=== PATIENT | male | born 1960 | race African-American/Black ===

== ENCOUNTER 2022-09-06 11:32 | Emergency (ER) | payer BC, SELFPAY ==
[2022-09-06 11:34] VITALS: BP 162/90; PULSE 98; RESP 14; TEMP 36.2; O2SAT 98
[2022-09-06 12:01] LABS: Appearance Urine Slightly Cloudy (Clear); Basophils Percent Auto 0.2 % (0.2-1.2); Bilirubin Urine 1+ (Negative); Blood Urine Trace-lysed (Negative); Color Urine Yellow (Yellow); Eosinophils Absolute Auto 0.1 K/mm3 (0-0.3); Eosinophils Percent Auto 1.2 % (0-4.4); Glucose Urine UA Negative (Negative); Hematocrit 45.7 % (42.0-52.0); Hemoglobin 15.5 g/dL (14.0-18.0); Immature Granulocyte Absolute 0.02 K/mm3 (0.00-0.031); Immature Granulocyte Percent A 0.3 % (0-0.5); Ketones Urine Negative (Negative); Leukocyte Esterase Ur Negative LEU/UL (Negative); Lymphocytes Absolute Auto 1.18 K/mm3 (0.9-3.2); Lymphocytes Percent Auto 20.6 % (18.3-44.2); Mean Corpuscular HGB Conc 33.9 g/dl (32-36); Mean Corpuscular Hemoglobin 32.3 pg (26-34); Mean Corpuscular Volume 95.2 fl (80-100); Mean Platelet Volume 11.3 fl (7.4-10.4); Monocytes Absolute Auto 0.7 K/mm3 (0.1-0.6); Monocytes Percent Auto 11.4 % (2.6-8.5); Neutrophils Absolute Auto 3.8 K/mm3 (1.3-6.7); Neutrophils Percent Auto 66.3 % (45.5-73.1); Nitrate Urine Negative (Negative); Platelet Count Result 183 k/mm3 (150-375); Protein Urine 2+ mg/dL (Negative); Red Cell Distribution Width 13.6 % (11.5-14.5); Specific Grav Ur >= 1.030 (1.001-1.035); Urobilinogen Urine 0.2 mg/dL (<2.0); White Blood Count 5.7 K/mm3 (4.5-10.0); pH Urine 5.5 (5.0-9.0)
[2022-09-06 12:10] LABS: Mucus Urine Heavy /lpf; Squamous Epithelial Cell Urine Rare /hpf (Few); WBC Urine 0-3 /hpf
[2022-09-06 12:11] LABS: Add Urine Microscopic? YES
[2022-09-06 12:16] LABS: Alanine Aminotransferase 18 U/L (6-50); Albumin Level 4.5 g/dL (3.5-5.1); Alkaline Phosphatase 73 U/L (38-126); Anion Gap 8 mmol/L (8-16); Aspartate Amino Transferase 26 U/L (17-59); Bilirubin,Total 0.8 mg/dL (0.2-1.3); Blood Urea Nitrogen 11 mg/dL (9-20); Carbon Dioxide 25 mmol/L (22-30); Chloride 106 mmol/L (98-107); Estimated CRCL calculation 108 ml/min; Estimated Glomerular Filt Rate > 60; Glucose 109 mg/dL (65-110); Lipase 54 U/L (23-300); Potassium 3.7 mmol/L (3.4-5.0); Sodium 139 mmol/L (137-145)
--- NOTE | 2022-09-06 13:20 | ED.ABDPAIN ---
HPI - Abdominal Pain General Chief Complaint: Abdominal Pain Stated Complaint: diarrhea with abdominal and groin pain x 3 days Time Seen by Provider: 09/06/22 12:17 History of Present Illness HPI narrative: This is a 62-year-old male who denies past medical history, presenting emergency department complaining of loose stools for the past 3 days and groin pain. Patient states he has had frequent loose stools without blood. States he believes he had a fever yesterday that has since resolved. He does not know of any sick contacts and denies poorly cooked or foul tasting foods. He noted in the past day, bilateral groin pressure aggravated by standing or bending at the waist. This occasionally radiates to the bilateral thighs but denies pain elsewhere. Related Data Allergies Allergy/AdvReac Type Severity Reaction Status Date / Time No Known Allergies Allergy Unverified 09/06/22 11:32 Review of Systems Review of Systems: CONSTITUTIONAL: Subjective fever?resolved denies chills, or sweats. EYES: Denies visual changes, redness, or discharge. ENT: Denies rhinorrhea, congestion, sore throat, or otalgia. CARDIOVASCULAR: Denies chest pain, palpitations, or edema. RESPIRATORY: Denies cough or dyspnea. GASTROINTESTINAL: Bilateral intermittent groin pain, loose stools denies nausea or vomiting, GENITOURINARY: Denies dysuria or hematuria. SKIN: Denies rash or itching. MUSCULOSKELETAL: Denies back pain, joint pain, or myalgia. NEUROLOGIC: Denies headache, numbness, dizziness, or weakness. PSYCHIATRIC: Denies anxiety or depression. [facility] Social History Social History (Updated 09/06/22 @ 13:23 by Jacky Dotson MD) Smoking status: Never smoker Alcohol intake: current Substance use: never Exam Narrative: GENERAL: Well-developed, well-nourished, and in no acute distress. HEAD: Normocephalic, atraumatic. EYES: PERRLA and EOMI. ENT: Nares clear, no rhinorrhea or epistaxis. Mucous membranes moist. Oropharynx without tonsillar hypertrophy exudate or other lesions. NECK: Supple. No adenopathy or masses. No carotid bruits or JVD CHEST: Clear to auscultation. No respiratory distress. No wheezes rales or rhonchi HEART: Regular rate and rhythm. No murmur heard. Normal peripheral pulses. ABDOMEN: Soft, nontender, nondistended, normal active bowel sounds. No inguinal mass or swelling including on Valsalva EXTREMITIES: Normal range of motion. No edema. SKIN: Warm, dry, no rash. NEURO: No focal deficits. Alert and oriented x3. PSYCH: Normal mood and affect. Course Course Emergency Course: 14:32 - CBC unremarkable with a white blood cell count of 5.7. Chemistries are not concerning for kidney injury with a creatinine of 0.7. Electrolytes within normal limits. UA demonstrates microscopic hematuria. I suspect an infectious enteritis. I do not suspect need for admission. I discussed these findings with the patient including recommendations to follow-up with his primary care doctor for further evaluation. The patient voiced understanding and is comfortable with the plan. All questions answered to his satisfaction. Vital Signs Vital signs: Vital Signs Temperature 97.2 F L 09/06/22 11:34 Pulse Rate 98 09/06/22 11:34 Respiratory Rate 14 09/06/22 11:34 Blood Pressure 162/90 H 09/06/22 11:34 Pulse Oximetry 98 09/06/22 11:34 Oxygen Delivery Room Air 09/06/22 11:34 Temperature 97.2 F L 09/06/22 11:34 Pulse Rate 98 09/06/22 11:34 Respiratory Rate 14 09/06/22 11:34 Blood Pressure 162/90 H 09/06/22 11:34 Pulse Oximetry 98 09/06/22 11:34 Oxygen Delivery Room Air 09/06/22 11:34 MDM - Abdominal Pain MDM Narrative Medical decision making narrative: Plan: Labs, IV fluids if indicated, reassess Differential Diagnosis Differential diagnosis: Likely gastroenteritis and other (Hernia, metabolic abnormality, kidney injury, UTI, other) Lab Data 09/06/22 11:52 09/06/22 11:52
[2022-09-06 14:44] VITALS: PULSE 91; RESP 16; O2SAT 97
== END 2022-09-06 14:44 | disposition home or self-care (01) ==
PROVIDERS: Emergency Medicine; Emergency Provider Preventive Medicine Aerospace Medicine; PCP Family Medicine Adolescent Medicine
DX: K52.9 Noninfective gastroenteritis and colitis, unspecified (principal); R31.29 Other microscopic hematuria
CPT/HCPCS: 36415; 80053; 81001; 83690; 85025; 99283

== ENCOUNTER 2024-01-06 02:48 | Day surgery (SDC) | payer BC, SELFPAY ==
[2023-12-22 12:07] VITALS: BMI 41.6
[2024-01-06 07:02] VITALS: BP 137/80; PULSE 84; RESP 18; TEMP 36.3; O2SAT 98
[2024-01-06] MEDS: LACTATED RINGERS 1,000 ML 150 ML IV CONT (07:09)
--- NOTE | 2024-01-06 07:38 | P.PNAN_ITS ---
Anes - Initial Pre Proc Eval Procedure: Operation Date: 01/06/24 08:30 Proposed Procedures p Screening Colonoscopy - Jewel Appiah DO Date/Time: 01/06/24 07:38 Surgeon: Jewel Appiah DO Pre Op Diagnosis: Screening for malignant neoplasm of colon Patient Data Age: 63 Gender: M Height: 1.65 m Weight: 113 kg Last Vital Signs Temp 97.4 F L 01/06/24 07:02 Pulse 84 01/06/24 07:02 Resp 18 01/06/24 07:02 BP 137/80 01/06/24 07:02 Pulse Ox 98 01/06/24 07:02 O2 Del Method Room Air 01/06/24 07:02 Allergies Allergy/AdvReac Type Severity Reaction Status Date / Time No Known Allergies Allergy Verified 01/06/24 06:58 Home Medications Medication Instructions Recorded Confirmed Type phentermine 37.5 mg tablet 37.5 mg PO DAILY #30 tabs 12/03/23 12/22/23 Rx Patient hx anesthesia problems: none Family hx anesthesia problems: none Results Review: All pre-operative results and documents have been reviewed as part of the pre- operative evaluation. [facility] Past Medical History Medical History (Updated 12/03/23 @ 07:10 by Omer Osorio MD) Benign prostatic hyperplasia with lower urinary tract symptoms GERD (gastroesophageal reflux disease) History of bleeding peptic ulcer (2014) Dudenal ulcer, Positive H. pylori Impaired fasting glucose Male erectile dysfunction, unspecified Family History Family History (Updated 09/09/22 @ 13:06 by Lissette Ventura) Father Breast cancer Mother Diabetes mellitus Sibling Diabetes mellitus Cerebrovascular accident Hypertension Social History Social History (Updated 09/06/22 @ 13:23 by Jacky Dotson MD) Smoking status: Never smoker Alcohol intake: current Drinks per week: 4 Substance use: never Substance use type: does not use Living arrangements: with family Spiritual care concerns: No Anes - Eval Final PreProcedure Day of Procedure 01/06/24 07:38 Patient weight: morbidly obese Heart: regular rate and rhythm Lungs: clear to auscultation Airway: Mallampati scale class II Neurological: alert and oriented Last oral intake: >/= 8 hours ASA classification: III Emergent: no Anesthetic plan: proceed Anesthesia type and monitoring: general GIVS and standard monitoring Results Review: All pre-operative results and documents have been reviewed as part of the pre- operative evaluation. Informed Consent: The patient's anesthetic plan and its attendant risks and benefits were discussed with the patient/family/POA. Questions were solicited and answers provided to the satisfaction of the patient/family/POA.
--- NOTE | 2024-01-06 08:28 | PM.IMHP ---
H&P: HPI History of Present Illness Date/Time: 01/06/24 08:28 Chief Complaint: Screening for colorectal cancer Narrative: This is a 63-year-old man who presents for colonoscopy. His last colonoscopy was 10 years ago. He denies any hematochezia or melena. He denies any family history of colon cancer. Review of Systems Review of Systems: All systems reviewed & are unremarkable except as noted in HPI and below Constitutional: Constitutional: Denies chills, Denies fever(s), Denies headache(s) and Denies weight loss Eyes: Eyes: Denies change in vision ENT: Denies dizziness, Denies headache(s), Denies neck mass and Denies throat swelling Cardiovascular: Cardiovascular: Denies chest pain, Denies lightheadedness and Denies dyspnea Respiratory: Respiratory: Denies cough, Denies dyspnea and Denies wheezing Gastrointestinal: Gastrointestinal: Denies abdominal pain, Denies change in bowel habits, Denies nausea and Denies vomiting Genitourinary: Genitourinary: Denies hematuria and Denies dysuria Musculoskeletal: Musculoskeletal: Reports as per HPI Integumentary/Breasts: Skin/Breast: Reports as per HPI Neurologic: Denies dizziness and Denies headache(s) Allergic/Immunologic: Allergic/Immunologic: Denies throat swelling and Denies wheezing [facility] Past Medical History Medical History (Updated 01/06/24 @ 08:29 by Jewel Appiah DO) Benign prostatic hyperplasia with lower urinary tract symptoms GERD (gastroesophageal reflux disease) History of bleeding peptic ulcer (2014) Dudenal ulcer, Positive H. pylori Impaired fasting glucose Male erectile dysfunction, unspecified Family History Family History (Updated 09/09/22 @ 13:06 by Lissette Ventura) Father Breast cancer Mother Diabetes mellitus Sibling Diabetes mellitus Cerebrovascular accident Hypertension Social History Social History (Updated 09/06/22 @ 13:23 by Jacky Dotson MD) Smoking status: Never smoker Alcohol intake: current Drinks per week: 4 Substance use: never Substance use type: does not use Living arrangements: with family Spiritual care concerns: No Meds Home Medications and Allergies Home Medications Medication Instructions Recorded Confirmed Type phentermine 37.5 mg tablet 37.5 mg PO DAILY #30 tabs 12/03/23 12/22/23 Rx Allergies Allergy/AdvReac Type Severity Reaction Status Date / Time No Known Allergies Allergy Verified 01/06/24 06:58 Vital Signs Vital Signs - 24 hr 01/06/24 07:02 Temperature 36.3 C L Pulse Rate 84 Respiratory Rate 18 Blood Pressure 137/80 Pulse Oximetry 98 Oxygen Delivery Room Air Exam Const: General: no acute distress and alert Orientation/consciousness: patient oriented x3 HENMT: Head: normocephalic and atraumatic Ears: hearing grossly normal bilaterally Face/Nose/Sinus: Normal nares present Mouth: Yes Normal oral and palatal mucosa present Eyes: Periorbital: periorbital findings normal Sclera: sclerae normal EOM: EOMs intact bilaterally Neck: Neck: normal visual inspection, no lymphadenopathy and trachea midline Chest: Chest palpation & inspection: normal inspection of the chest Resp: Effort & Inspection: normal respiratory effort Auscultation: clear to auscultation bilaterally Cardio: Jugular venous distension: no JVD Rate: regular rate Rhythm: regular rhythm Heart sounds: S1 normal heart sound present and S2 normal heart sound present Peripheral pulses: Peripheral pulses 2+ throughout GI: Inspection: normal to inspection GI Palp: Yes Soft to palpation, No Tenderness to palpation present (GI), No Guarding due to palpation present (GI) and No Rebound tenderness present Percussion: Yes normal to percussion Auscultation: normal bowel sounds : General: Yes no CVA tenderness Back/Spine/Pelvis: Back: no CVA tenderness Neuro: General: patient oriented x3, no focal motor deficits and CN's II-XI intact bilaterally Cognition (Neuro): normal cognit
[2024-01-06 08:53] VITALS: BP 107/85; PULSE 74; RESP 21; O2SAT 97
[2024-01-06 09:03] VITALS: BP 126/82; PULSE 75; RESP 20; O2SAT 98
[2024-01-06 09:13] VITALS: BP 109/78; PULSE 69; RESP 20; O2SAT 99
== END 2024-01-06 09:21 | disposition home or self-care (01) ==
PROVIDERS: PCP Family Medicine Adolescent Medicine; Visit Provider Surgery
PROC: 0DJD8ZZ Inspection of Lower Intestinal Tract, Via Natural or Artificial Opening Endoscopic (ICD-10-PCS; CPT 45378; principal; 2024-01-06 08:30)
DX: Z12.11 Encounter for screening for malignant neoplasm of colon (principal); K63.5 Polyp of colon; K57.30 Diverticulosis of large intestine without perforation or abscess without bleeding; E66.01 Morbid (severe) obesity due to excess calories; Z68.41 Body mass index [BMI] 40.0-44.9, adult
CPT/HCPCS: 45380; 88305; J2704; J7120